=== PATIENT | female | born 1990 | race Caucasian/White ===

== ENCOUNTER → 2016-02-24 | Outpatient (CLI) | payer OTHER ==
--- NOTE | 2016-02-24 18:33 | DX ---
Cervical Spine, AP, Lateral, and Swimmer's views, 3 Views Total, at 6:05 PM CLINICAL HISTORY: 25-year-old female with cervicalgia for 2 weeks. ICD 10 Diagnostic Code: N54.2. COMPARISON STUDY: Cervical spine series, dated March 25, 2009. FINDINGS: The cervical vertebral body heights, alignments, and disc spaces are preserved. There is no facet malalignment, and the interspinous distances are appropriate. The prevertebral soft tissue thi ckness is normal. The predental space is normal. The cervical-thoracic alignment is maintained on the swimmer's view. IMPRESSION: Normal exam.
== END ==
LOC: FIMAGING 17:58
PROVIDERS: ATTEND Physician Assistant
DX: M54.2 Cervicalgia (principal)